=== PATIENT | female | born 1990 | race Caucasian/White ===

== ENCOUNTER 2016-11-01 11:23 | Inpatient (IN) | payer OTHER ==
[~2016-11-01] VITALS: Ht 170.2 cm; Wt 102.1 kg
[2016-11-01 08:15] VITALS: BP_SYST 121; RESP 20; TEMP 98
[2016-11-01] MEDS ORDERED: AMPICILLIN 2,000 MG in SODIUM CHLORIDE 0.9% 100 ML IV SCH (12:00)
[2016-11-01] MEDS ORDERED: MAGNESIUM 50 GM/500 ML (LD/OB) 500 ML IV ONE (12:07)
[2016-11-01] MEDS ORDERED: MAGNESIUM 4GM/50ML (LD/OB) 50 ML IV ONE ×2 (12:07→12:15)
[2016-11-01] MEDS ORDERED: FAMOTIDINE 20 MG TAB PO PRN (12:10)
[2016-11-01] MEDS ORDERED: LIDOCAINE 1% 30 ML PF INFILTRATE ONE (12:10)
[2016-11-01] MEDS ORDERED: CEFAZOLIN (LD/OB) 100 ML IV PRN (12:10)
[2016-11-01] MEDS ORDERED: MORPHINE 2 MG/ML SYR IV PRN (12:10)
[2016-11-01] MEDS ORDERED: TERBUTALINE 1 MG/ML VIAL SUBQ PRN (12:10)
[2016-11-01] MEDS ORDERED: METOCLOPRAMIDE 10 MG/2 ML VIAL IV PUSH PRN (12:10)
[2016-11-01] MEDS ORDERED: LACT RINGERS 1,000 ML IV SCH (12:10)
[2016-11-01] MEDS ORDERED: FAMOTIDINE 20 MG INJ IV PRN (12:10)
[2016-11-01] MEDS ORDERED: LIDOCAINE 1% BUFFERED 1 ML SYR INTRADERM PRN ×2 (12:10→12:15)
[2016-11-01] MEDS ORDERED: PROMETHAZINE 25 MG/ML VIAL IV PRN (12:10)
[2016-11-01] MEDS ORDERED: ACETAMINOPHEN 325 MG TAB PO PRN (12:10)
[2016-11-01] MEDS ORDERED: ONDANSETRON 4 MG VIAL IV PRN (12:10)
[2016-11-01] MEDS ORDERED: ALU/MAG/SIM 30 ML UDC PO PRN (12:10)
[2016-11-01] MEDS ORDERED: OXYTOCIN 15 UNITS/250 ML NS 250 ML IV SCH ×2 (12:10→18:35)
[2016-11-01] MEDS ORDERED: CALCIUM GLUC 1000 MG/10 ML IV PUSH PRN (12:15)
[2016-11-01] MEDS ORDERED: BETAMETHASONE SUSP 6 MG/ML VIAL 5 ML IM SCH (12:15)
[2016-11-01] MEDS ORDERED: MAGNESIUM 50 GM/500 ML (LD/OB) 500 ML IV SCH (12:15)
[2016-11-01] MEDS ORDERED: LIDOCAINE 1% 30 ML PF ONE (13:09)
[2016-11-01] MEDS ORDERED: OXYTOCIN 15 UNITS/250 ML NS 500 ML IV ONE (13:10)
[2016-11-01 13:52] VITALS: BMI 35.2
[2016-11-01] MEDS ORDERED: MISOPROSTOL 100 MCG TAB ONE (18:14)
[2016-11-01 18:15] VITALS: BP_SYST 121; RESP 20; TEMP 98
[2016-11-01 18:30] VITALS: BP_SYST 114; RESP 20
[2016-11-01] MEDS ORDERED: ASTRINGENT MED PADS 40'S TOPICAL PRN (18:35)
[2016-11-01] MEDS ORDERED: MISOPROSTOL 200 MCG TAB PO ONE (18:35)
[2016-11-01] MEDS ORDERED: SALINE FLUSH 10 ML FLUSH PRN (18:35)
[2016-11-01] MEDS ORDERED: MEASLES,MUMPS,RUBELLA VAC SUBQ.VACC ONE (18:35)
[2016-11-01] MEDS ORDERED: ZOLPIDEM 5 MG TAB PO PRN (18:35)
[2016-11-01] MEDS ORDERED: SODIUM CHLORIDE 0.9% FLUSH BAG 500 ML IV PRN (18:35)
[2016-11-01] MEDS ORDERED: MAG HYDROX 30 ML UDC PO PRN (18:35)
[2016-11-01] MEDS ORDERED: DERMOPLAST SPRAY TOPICAL PRN (18:35)
[2016-11-01] MEDS ORDERED: TDaP 0.5 ML VIAL IM.VACC ONE (18:35)
[2016-11-01 18:45] VITALS: BP_SYST 119; RESP 20
[2016-11-01 19:00] VITALS: BP_SYST 107; RESP 20
[2016-11-01 19:15] VITALS: BP_SYST 112; RESP 20
[2016-11-01] MEDS: Ibuprofen 800 MG TAB PO SCH (23:57)
[2016-11-02 02:47] VITALS: BP_SYST 104; RESP 16; TEMP 98.3
[2016-11-02 05:54] VITALS: BP_SYST 100; RESP 16; TEMP 97.6
[2016-11-02] MEDS: SALINE FLUSH 10 ML FLUSH SCH ×2 (08:00→20:00)
[2016-11-02] MEDS: DOCUSATE SOD 100 MG CAP PO SCH (08:31)
[2016-11-02] MEDS: Ibuprofen 800 MG TAB PO SCH ×3 (08:33→23:31)
[2016-11-02 09:29] VITALS: BP_SYST 102; RESP 16; TEMP 97.6
[2016-11-02 18:02] VITALS: BP_SYST 111; TEMP 97.6
[2016-11-02 18:03] VITALS: RESP 18
[2016-11-03 05:27] VITALS: BP_SYST 107; RESP 20; TEMP 98.2
[2016-11-03] MEDS: SALINE FLUSH 10 ML FLUSH SCH (08:00)
[2016-11-03] MEDS: Ibuprofen 800 MG TAB PO SCH (08:00)
[2016-11-03] MEDS: DOCUSATE SOD 100 MG CAP PO SCH (08:53)
[2016-11-03 09:15] VITALS: BP_SYST 115; RESP 16; TEMP 97.7
[2016-11-03 14:11] VITALS: BP_SYST 115; RESP 16; TEMP 97.7
== END 2016-11-03 18:07 | disposition home or self-care (01) | DRG 775 ==
LOC: LDOP 11:23 → LD 12:07 → OB 20:24
PROVIDERS: ADMIT Obstetrics & Gynecology; ATTEND Obstetrics & Gynecology
PROC: 10E0XZZ Delivery of Products of Conception, External Approach (ICD-10-PCS; principal; 2016-11-01)
PROC: 10907ZC Drainage of Amniotic Fluid, Therapeutic from Products of Conception, Via Natural or Artificial Opening (ICD-10-PCS; 2016-11-01)
CPT/HCPCS: 80053; 82803; 85025; 86850; 86870; 86900; 86901; 87071; 87088; 88307; 96372

== ENCOUNTER 2016-11-07 19:36 | Emergency (ER) | payer OTHER | END 2016-11-07 22:10 | disposition home or self-care (01) | LOC: ER 19:36 | DX: M79.605 Pain in left leg (principal) | CPT/HCPCS: 93971 ==